=== PATIENT | female | born 1930 | race Caucasian/White ===

== ENCOUNTER 2017-10-27 05:44 | Day surgery (SDC) | payer OTHER, BC ==
[~2017-10-27] VITALS: Ht 165.1 cm; Wt 60.8 kg
[~2017-10-27 05:44] MED LIST: ADVAIR 100/501 DISK IH; ALENDRONATE SOD70 MG PO; ASPIR 8181 M1 PO; Antivert PO; BENICAR HCT 201 EACH PO; CALCIUM600 M1 PO; Norvasc PO; PRAVACHOL20 MG PO; VENTOLIN HFA18 GM IH; VITAMIN D32000 UNIT PO; ZITHROMAX Z-PA250 MG PO
[2017-10-27] MEDS ORDERED: ATIVAN0.5 MG PO (06:39)
[2017-10-27 06:59] VITALS: BP 167/78
[2017-10-27] MEDS ORDERED: HYDROCODON-ACE1 EAC7 PO (12:41)
[2017-10-27 14:20] VITALS: BP 192/91
[2017-10-27 15:34] VITALS: BP 170/73
== END 2017-10-27 15:45 | disposition home or self-care (01) ==
LOC: SDC 05:44
DX: C50.811 Malignant neoplasm of overlapping sites of right female breast (principal); Z17.0 Estrogen receptor positive status [ER+]; J45.909 Unspecified asthma, uncomplicated; E78.5 Hyperlipidemia, unspecified; I10 Essential (primary) hypertension; Z80.0 Family history of malignant neoplasm of digestive organs; Z79.82 Long term (current) use of aspirin
CPT/HCPCS: 78195; 78999; 87641; 88305; 88307; 88341 TC; 88342 TC; A9541; J0690; J1100; J1170; J2405; J2710; J3010; J7643; S0020

== ENCOUNTER 2017-11-29 05:58 | Day surgery (SDC) | payer OTHER, BC ==
[~2017-11-29] VITALS: Ht 162.6 cm; Wt 56.7 kg
[~2017-11-29 05:58] MED LIST changes: +ATIVAN0.5 MG PO; +HYDROCODON-ACE1 EAC7 PO; +ZESTORETIC 20-1 EAC2 PO
[2017-11-29 06:41] VITALS: BP 164/79
[2017-11-29 11:42] VITALS: BP 192/83
[2017-11-29 15:42] VITALS: BP 169/73
[2017-11-29 20:08] VITALS: BP 143/70
[2017-11-29 23:36] VITALS: BP 160/66
[2017-11-30 04:07] VITALS: BP 156/58
[2017-11-30 06:21] LABS: HEMATOCRIT 35.9 % (36.0-46.0); HEMOGLOBIN 11.7 G/DL (11.9-15.5); MCH 28.5 PG (29.0-34.0); MCHC 32.6 G/DL (30.0-36.0); MCV 87.6 FL (83-99); PLATELET COUNT 222 K/uL (156-360); RBC DIS.WIDTH-CV 14.8 % (11.8-14.6); RBC DIS.WIDTH-SD 47.7 % (39-53); WHITE BLOOD COUNT 8.8 K/uL (4.1-10.2)
[2017-11-30 07:35] VITALS: BP 150/73
== END 2017-11-30 12:07 | disposition home or self-care (01) ==
LOC: SDC 05:58 → 2SOUTH 09:49 → 2EAST 09:49 → 2SOUTH 09:49 → ENRESERV 09:53 → 2EAST 11:34 → SDC 14:52 → 2EAST 11-30 12:07
PROVIDERS: Surgery
PROC: 0HTT0ZZ Resection of Right Breast, Open Approach (ICD-10-PCS; principal; 2017-11-29)
DX: C50.811 Malignant neoplasm of overlapping sites of right female breast (principal); Z17.0 Estrogen receptor positive status [ER+]; I10 Essential (primary) hypertension; J44.9 Chronic obstructive pulmonary disease, unspecified; Z86.73 Personal history of transient ischemic attack (TIA), and cerebral infarction without residual deficits; E78.5 Hyperlipidemia, unspecified; Z79.82 Long term (current) use of aspirin
CPT/HCPCS: 82948; 85027; 88309; 88342 TC; 88360; G0378; J0131; J0690; J1100; J1170; J1885; J2405; J3010; J3480; Q0175; S0020